=== PATIENT | male | born 1995 | race Asian ===

== ENCOUNTER → 2017-08-25 | Outpatient (CLI) | payer OTHER ==
--- NOTE | 2017-08-25 16:24 | DIAGNOSTIC IMAGING REPORT ---
MRI OF THE LEFT KNEE WITHOUT CONTRAST CLINICAL HISTORY: Left knee pain following injury. Concern for ACL tear. Possible Segond fracture. COMPARISON STUDY: None. TECHNIQUE: Utilizing a 1.5 Nalini magnet and dedicated coil, multiplanar, multiecho imaging of the left knee was performed without intravenous or intraarticular contrast. FINDINGS: Alignment of the left knee is anatomic. The extensor mechanism is intact. There is no joint effusion. There is increased signal within the anterior cruciate ligament with indistinctness of the proximal to mid fibers of the ACL consistent with an ACL tear. The posterior cruciate ligament is intact. The medial collateral ligament and lateral collateral complex are intact. There is a 6 mm T1 and T2 hypointense focus inferior lateral to the lateral tibial plateau which suggests a Segond fracture with associated lateral capsule injury. In addition, there is a nondisplaced nondepressed fracture within the posterior aspect of the lateral tibial plateau. Minimal edema within the lateral femoral condyle suggest an impaction injury. No additional chondral abnormalities are identified. There is minimal edema within the posterior aspect the medial tibial plateau. There is minimal edema within the medial femoral condyle. The lateral meniscus is intact. There is an oblique tear of the posterior horn of the medial meniscus which extends to tibial articular surface. IMPRESSION: 1. Increased signal within the ACL with indistinctness of the proximal to mid fibers of the ACL consistent with an ACL tear. 2. Nondisplaced nondepressed fracture of the posterior aspect of the lateral tibial plateau. Mild marrow edema within the lateral femoral condyle suggests an impaction injury in the setting of an ACL tear. Mild edema within the medial femoral condyle and medial tibial plateau suggest bone contusions. 3. 6 mm bone fragment inferolateral to lateral tibial plateau consistent with a Segond fracture with associated lateral capsular injury. 4. Oblique tear of the posterior horn of the medial meniscus. Electronically signed by: Trevor Steven M.D. 08/25/2017 4:22 PM Dictated Date/Time: 08/25/2017 3:59 PM
== END | disposition home or self-care (01) ==
LOC: C.MRI 15:12
PROVIDERS: ATTEND Family Medicine
DX: S82.145A Nondisplaced bicondylar fracture of left tibia, initial encounter for closed fracture (principal); S83.242A Other tear of medial meniscus, current injury, left knee, initial encounter; X58.XXXA Exposure to other specified factors, initial encounter

== ENCOUNTER → 2017-09-24 | Day surgery (SDC) | payer OTHER ==
[2017-09-10 13:01] VITALS: Ht 182.9 cm; Wt 100.0 kg
[~2017-09-24] VITALS: Ht 182.9 cm; Wt 100.0 kg
[~2017-09-24] MED LIST: ATROPINE SULFATE 0.1 MG/ML 5ML SYR IV PRN; BUPIVACAINE 0.5 % 5 MG/1 ML PF 10ML VIAL ONE; CEFAZOLIN 2000MG IV PUSH 15 ML IV SCH; CEFAZOLIN IV 1,000 MG in DEXTROSE 5% 50ML 50 ML IV SCH; CEFAZOLIN SOD 1 GM VIAL ONE; DEXAMETHASONE SOD INJ 4 MG/ML VIAL ONE; EpHEDrine SULFATE INJ 50 MG/ML AMP IV PRN; EpINEphrine INJ 1MG/ML AMP 1 MG/ML AMP ONE; FENTANYL CITRATE INJ 50 MCG/1 ML 2 ML VIAL ONE; HYDROmorphone INJ 2 MG/ML SYR/VIAL IV PRN; KETOROLAC TROMETHAMINE 30 MG/ML VIAL IV STA; KETOROLAC TROMETHAMINE 30 MG/ML VIAL ONE; LACTATED RINGER'S 1000ML 1,000 ML IV SCH; LIDOCAINE HCL 1% 20 ML VIAL ONE; LIDOCAINE HCL 2% 2 ML VIAL (20MG/ML) ONE; LIDOCAINE/EPINEPHRINE 1% 20 ML VIAL ONE; MIDAZOLAM HCL 1 MG/ML 2ML VIAL ONE; MoRPHine SULFATE 2 MG/ML CARP IV PRN; MoRPHine SULFATE 4 MG/ML 1 ML CARP\\VIAL IV PRN; ONDANSETRON INJ 2 MG/ML 2 ML VIAL IV PRN; ONDANSETRON INJ 2 MG/ML 2 ML VIAL ONE; OXYC-57 PO; OXYCODONE/ACETAMINOPHEN 5-325 TAB PO PRN; PHENYLEPHRINE 100MCG/ML 5ML SYR IV PRN; PROPOFOL IV EMULSION 10 MG/ML 20 ML VIAL IV ONE; ROPIVACAINE 0.5% 5 MG/ML 30 ML VIAL ONE; SODIUM CHLORIDE 0.9% 1000ML 1,000 ML IV SCH
--- NOTE | 2017-09-24 08:28 | History & Physical Bridge Note ---
H&P Re-Evaluation Bridge Note: I have examined the patient, reviewed the History & Physical and in the interval since the performance of the History & Physical I have noted the following changes of clinical significance: No changes noted
--- NOTE | 2017-09-24 12:01 | [facility] Post Operative Brief Note ---
Immediate Operative Summary Operative Date Sep 24, 2017. Pre-Operative Diagnosis Left Knee Anterior Cruciate Ligament Tear Post-Operative Diagnosis Same Procedure(s) Performed Left Knee Arthroscopic Anterior Cruciate Ligament Reconstruction With Patella Tendon Autograft Surgeon Dr. Godoy Creative Services Specialist Surgeon(s) Mattie Grant PA-C Estimated Blood Loss 25 ML Findings Consistent with Post-Op Diagnosis Specimens None Drains None Anesthesia Type General Regional Complication(s) none Disposition Accompanied Pt To Recovery: no Disposition: Recovery Room / PACU
--- NOTE | 2017-09-24 12:25 | Discharge Instructions-SurgCtr ---
Discharge Instructions Date of Service Sep 24, 2017. Visit Reason for Visit: Left Knee Acl Tear Discharge Discharge Diagnosis / Problem: Left knee ACL tear Discharge Goals Goal(s): Decrease discomfort, Improve function, Increase independence Activity Recommendations Activity Limitations: per Instructions/Follow-up section Weightbearing Status: Left non-weightbearing, Right weightbearing (as tolerated ) Anesthesia . Post Anesthesia Instructions: If you have had General Anesthesia or IV Sedation: * Do not drive today. * Resume driving when surgeon permits. * Do not make important decisions or sign legal documents today. * Call surgeon for: 1. Temperature elevations greater than 101 degrees F. 2. Uncontrollable pain. 3. Excessive bleeding. 4. Persistent nausea and vomiting. 5. Medication intolerance (nausea, vomiting or rash). * For nausea and vomiting use only clear liquids such as: tea, soda, bouillon until nausea subsides, then gradually increase diet as tolerated. * If you have any concerns or questions, call your surgeon's office. If physician is unavailable and it is an emergency, call 911 or go to the nearest emergency room. . Instructions / Follow-Up Instructions / Follow-Up The following instructions are a useful guide to questions you may have after your Anterior Cruciate Ligament Reconstruction surgery. If you have any questions contact the office at . ACTIVITY RECOMMENDATIONS: * Heavy manual labor is not permitted until 4-6 months after surgery. * Sports are not permitted until 6-9 months after surgery. * Return to activity is individualized. * DRIVING: Driving is not permitted until 3-4 weeks after surgery at a minimum. Please ask your doctor when it is safe to resume driving. If you have an automatic vehicle and your left leg has been operated on, then you may begin driving as soon as you are comfortable and can drive safely. * BATHING: You may shower or sponge-bathe immediately after surgery. The dressing will need to be covered with a plastic bag or plastic wrap until the dressing is changed on the fourth or fifth day after surgery. Once the dressing has been changed on the fourth or fifth day after surgery, you may shower and get the incision wet. * Wash with regular soap and water. * Do not bathe (submerge the incision), soak, swim or use a hot tub until the incision is completely healed over with normal skin and the doctor has given the OK to proceed. * There is no need to apply any ointments, powders or salves to your incision. * Do not apply alcohol or hydrogen peroxide directly to the incision. Diluted peroxide (50:50 mixture with sterile saline) may be used to clean dried blood from around the incision area. WORK/SCHOOL: * You may return to sedentary work or school when you are feeling comfortable. This is usually 3-7 days after surgery. * Expect increased discomfort with increased activity. Continue to elevate and ice the leg as much as possible. DIET: * Resume previous diet. MEDICATIONS: * You will have a prescription for pain medication and an anti-inflammatory medication after surgery. Use the pain pills for severe pain and the anti-inflammatory for less severe pain. * Once the pain pills have run out, try to use the anti-inflammatory. If this is not effective then contact the office for assistance. * The pain medication may cause nausea, constipation and sleepiness. You should see how they affect you before driving or similar activity. * The anti-inflammatory may cause stomach upset and bleeding. If this occurs, let your doctor know immediately . * Some patients may need blood clot prevention. This can be done with either a pill or a simple shot. Your doctor will advise you on when to begin these medications and how to take them. * Do not take aspirin or other anti-inflammatory products (i.e. Advil or Aleve ) if taking blood thinner medication. * Take a stool softener like Colace or a stimulant like Senokot to prevent constipation. SPECIAL CARE INSTRUCTIONS: The following instructions are a useful guide to questions you may have after your surgery. If you have any questions contact the office at . ICE: * You have the option of an ice cooler, gel packs or ice bags. * If you have an ice cooler, refer to the instructions for that device. * If you do not have an ice cooler, then you will need to use ice bags or gel packs. * Do not apply ice directly to the skin. * Use a thin dressing or stockinet between the skin and ice bag. * Apply ice for 20-30 minutes and repeat every 2-4 hours. This is especially important for the first 7-10 days after surgery. * Once the pain improves, use ice as needed. * The ice cooler can be used continuously. ELEVATION: * Keep your leg elevated at or above the level of your heart as much as possible. * Expect some increased discomfort and swelling if you are standing for any length of time. * When lying down, avoid placing anything under your knee. Rather, prop your leg up by placing several pillows under your heel or calf. DRESSING: * Your dressing will be changed at your first therapy appointment approximately 4-5 days after surgery. * Band-Aids, tape strips or gauze may be applied. You may then change your dressing daily. * Always wash your hands prior to touching the incision area. * Reapply dressing followed by the Lucian wrap or [employer] executive stockinet, ice cooling pad and then the brace. * Once the stitches are removed, you may leave the wound open to air or cover with an Lucian Bandage or [employer] executive stockinet. * If you have been given a white elastic stocking (JAIME hose), wear as much as possible for the first 1-3 weeks depending on swelling. * Expect some bloody drainage for the first few days after surgery. * Leave the tape strips in place for 5-7 days. * Band-Aids and gauze may be changed daily. CRUTCHES: * You will need to use crutches after surgery. * Until your first doctor's appointment, you must use your crutches at all times when walking and should put no more than 50% of your normal weight on the surgical leg. * After your first doctor's appointment, you may gradually progress to full weight bearing and discontinue crutches as tolerated under the guidance of your therapist. * If you have had a microfracture procedure done, you may be advised to be non- weight bearing for up to 6 weeks. BRACE: * After surgery, you will be placed into a range of motion brace locked with your leg straight. This brace is to be worn at all times when walking (even with the crutches) and sleeping until your first doctors appointment. * The brace may be removed for therapy. * After your first therapy appointment, your therapist will open the brace to allow bending of the knee once your muscles are working better. * Until your first doctor's appointment, you should sleep with your brace locked with your knee fully straight. * If you have chosen to use a functional ACL brace then this brace will be supplied about 2-3 months after your surgery. During that time, you will attend therapy 2- 3 times per week. You will also need to do daily exercises for range of motion and strength as instructed. PROBLEMS/QUESTIONS: * If you have any problems such as severe pain, numbness, tingling or high fevers or if you have any questions, please contact the office at [phone]. * It is not uncommon to have some numbness and tingling after the surgery especially if you have had a nerve block done. This should gradually improve over the first 1- 2 days. If this persists longer or worsens then contact the office. FOLLOW UP VISIT: * If not already scheduled, please call the office at to schedule follow-up appointments for approximately 10 days and one month after surgery followed by monthly appointments thereafter. *You have physical therapy appointment September 29, 2017 at 2:30 PM. *You have a follow-up with Dr. Godoy on October 05, 2017 11:45 AM. Diet Recommendations Home Diet: no limitations, resume previous diet Procedures Procedures Performed: Left Knee Arthroscopic Anterior Cruciate Ligament Reconstruction With Patella Tendon Autograft Pending Studies Studies pending at discharge: no Medical Emergencies . Who to Call and When: Medical Emergencies: If at any time you feel your situation is an emergency, please call 911 immediately. . Non-Emergent Contact Non-Emergency issues call your: Surgeon Call Non-Emergent contact if: temperature is above 101, your pain is not controlled, wound has increased drainage, wound has increased redness, wound has increased pain, you have any medication questions . . "Provider Documentation" section prepared by Gloria Grant. . [place] Drug Monitoring Program Search Results: patient reviewed within database, no issues identified
--- NOTE | 2017-09-24 12:27 | [facility] Operative Report ---
Operative Report Operative Date Sep 24, 2017. Pre-Operative Diagnosis Left Knee Anterior Cruciate Ligament Tear Post-Operative Diagnosis Same Procedure(s) Performed Left Knee Arthroscopic Anterior Cruciate Ligament Reconstruction With Patella Tendon Autograft Surgeon Dr. Godoy Wood Heel Fitter Machine Surgeon(s) Mattie Grant PA-C Estimated Blood Loss 25 ML Findings ACL tear left knee Specimens None Drains None Anesthesia Type General Regional Complication(s) none Disposition yes Recovery Room / PACU Indications Patient is a 22-year-old male with acute left ACL tear. Complaint of instability and pain in his left knee. X-rays were taken and found no bony abnormality. MRI was obtained found to have an complete ACL tear of his left knee. Surgical intervention was discussed. He agreed to proceed with surgery. Risks and complications were discussed and informed consent was obtained. Description of Procedure Patient was taken to the operating room and placed under general anesthesia. He was given a peripheral nerve block preoperatively. Timeout was performed. He was given 2 g of IV Ancef for surgical prophylaxis. He was prepped and draped in routine sterile fashion. I was present during the entire case, please see Dr. Godoy's operative report for further detail. Patient was awakened and transferred to recovery room in stable condition. I attest to the content of the Intraoperative Record and any orders documented therein. Any exceptions are noted below.
[2017-09-24 13:08] VITALS: TEMP 36.9
--- NOTE | 2017-09-24 13:31 | Anesthesia Progress Nt - [facility] ---
Anesthesia Post Op Note Date & Time Sep 24, 2017 at 13:30 Vital Signs Pain Intensity: 4 Vital Signs Past 12 Hours Date Time Temp Pulse Resp B/P (MAP) Pulse Ox O2 Delivery O2 Flow Rate FiO2 09/24/17 13:08 36.9 106 18 154/95 (114) 95 Room Air 09/24/17 13:05 142/93 09/24/17 13:02 36.8 96 Room Air 09/24/17 13:02 92 16 09/24/17 13:02 92 16 95 09/24/17 13:01 98 19 95 09/24/17 13:01 98 19 09/24/17 13:00 147/94 09/24/17 12:56 95 19 09/24/17 12:56 95 19 95 09/24/17 12:55 148/99 09/24/17 12:51 105 18 96 09/24/17 12:51 105 18 09/24/17 12:50 161/98 09/24/17 12:47 99 16 100 09/24/17 12:47 98 16 09/24/17 12:45 152/86 09/24/17 12:42 96 17 100 09/24/17 12:42 96 17 09/24/17 12:40 148/91 09/24/17 12:37 98 15 09/24/17 12:37 97 15 100 09/24/17 12:35 149/87 09/24/17 12:32 98 18 09/24/17 12:32 97 18 100 09/24/17 12:30 154/94 09/24/17 12:27 96 20 09/24/17 12:27 96 20 100 09/24/17 12:25 143/93 09/24/17 12:22 99 19 09/24/17 12:22 98 19 100 09/24/17 12:21 153/89 09/24/17 12:21 36.4 95 12 153/89 100 Mask 6 09/24/17 09:17 76 09/24/17 09:17 74 17 100 09/24/17 09:16 159/86 09/24/17 09:14 79 09/24/17 09:14 76 18 100 09/24/17 09:10 156/86 09/24/17 09:09 73 09/24/17 09:09 71 16 99 09/24/17 09:06 145/92 09/24/17 09:04 74 09/24/17 09:04 74 18 155/94 100 09/24/17 09:01 Oxymask 4 09/24/17 08:59 69 09/24/17 08:59 72 18 100 Oxymask 10 09/24/17 08:59 68 14 100 09/24/17 08:54 72 09/24/17 08:54 70 21 100 09/24/17 08:49 81 97 09/24/17 08:49 79 09/24/17 08:44 78 97 09/24/17 08:44 77 09/24/17 08:39 80 98 09/24/17 08:39 81 09/24/17 08:05 36.4 82 18 141/87 (105) 98 Room Air Notes Mental Status: alert / awake / arousable, participated in evaluation Pt Amnestic to Procedure: Yes Nausea / Vomiting: adequately controlled Pain: adequately controlled Airway Patency, RR, SpO2: stable & adequate BP & HR: stable & adequate Hydration State: stable & adequate Anesthetic Complications: no major complications apparent
--- NOTE | 2017-09-24 14:16 | [facility] Operative Report ---
Operative Report Operative Date Sep 24, 2017. Pre-Operative Diagnosis Left Knee Anterior Cruciate Ligament Tear Post-Operative Diagnosis Same Procedure(s) Performed Left Knee Arthroscopic Anterior Cruciate Ligament Reconstruction With Patella Tendon Autograft Surgeon Dr. 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 He has injured his left knee having findings of on clinical exam and MRI consistent with a complete tear of the ACL. Description of Procedure Informed consent obtained. Patient identified as Jeane Niño. He identified the operative site as the left knee. I marked with my initials. A preop surgical timeout was performed. A preop dose of IV antibiotics was given. He was positioned supine on the OR table. A lateral post was used for stressing the knee a tourniquet was applied to the left thigh. The leg was prepped and draped in usual sterile fashion. 1% lidocaine with epinephrine was injected in the knee joint fat pad and portal sites preoperatively. Examination under anesthesia revealed range of motion 2/0/140 equal bilaterally he had a 1+ Juliana with a soft endpoint on the left and a grade 1 pivot shift the knee was otherwise stable and equal to the opposite side there is no effusion. DVT prophylaxis with early mobility. The procedure began by establishing inferolateral viewing portal superior lateral outflow portal and inferomedial working portal. Diagnostic arthroscopy was performed. The articular surfaces of the patella and trochlea were normal the suprapatellar pouch was normal. The patient had a very large retropatellar fat pad and a very prominent medial plica. This in fact almost resemble resembled a meniscus in terms of it being whitish thick tissue that required the use of an arthroscopic biter to release. This was thoroughly debrided. The posterior medial lateral compartments were normal. The articular surfaces of the femur and tibia were normal. Both menisci were intact and stable to probing. There were no loose bodies. Popliteal hiatus was normal. There was some generalized very mild synovitis consistent with prior hemarthrosis. The ACL looks normal upon visual inspection. There was a small nodule consistent with a tear located jumana-laterally. On probing of the ACL it was noted that it was lax and its attachment to the femur was completely deficient. It was scarred into place and could essentially be pulled away with the probe and this interface was easily debrided with the shaver. The ACL was then resected. The limb was exsanguinated with the Esmarch tourniquet inflated 275 mmHg. A midline incision about 10 cm in length was made a full-thickness incision was made down to the patellar tendon and the peritenon was elevated exposing the width of the tendon which was about 34 mm. The central 10-12 mm was harvested as a bone patellar tendon bone autograft using a sterile standard fashion. The patellar block was fashioned into a 9 x 23 size and the tibial block a 10 x 28. Overall graft length was approximately 95 mm. The graft was prepared with the markings and drill holes placed on the back table for safe keeping. The lateral wall wall was debrided of soft tissue. The lateral bifurcate ridge was not very prominent. There was some mild stenosis of the notch. The lateral intercondylar ridge was noted. An accessory medial portal was created using outside in technique with a spinal needle. Based upon anatomical landmarks the center of the femoral ACL tunnel was identified about 8-9 mm anterior to the posterior cartilage margin and just a millimeter posterior to the faint prominence of the lateral bifurcate ridge. This corresponded to about the 45% jeremias on the AP condylar width. A jeremias was made with a microfracture pick. Based upon anatomical landmarks the center of the ACL tibial tunnel was marked. Outside the knee I elevated up the soft tissues including the pedis tendons exposing the MCL. The Arthrex ACL guide set to 55 was placed into the knee through the accessory medial portal. A guidepin was drilled into place and adjusted 1 and then drilled to a size 10 dilated with a 10 mm tunnel dilator. The intra-and extra extra-articular entrances were cleaned and beveled with a rasp as appropriate. Plug inserted. The knee was then placed into the hyperflexed figure 4 position. The accessory medial portal was used followed by a spade tip guidewire introduced into the after mentioned spot on the femur. This was drilled and through and through with a depth of 40 mm for the tunnel. A low-profile Arthrex reamer was inserted carefully past the cartilage in a socket of 25 mm in depth was drilled. The bony debris was evacuated and a 10 mm dilator was used to smooth this out. A passing suture was applied and brought out the tibial tunnel. The graft was then passed into a Chacho grade fashion into the knee and secured within the femoral socket. This was done and they a hyperflexed position overnight no wire using the graft underliner. An 8 x 20 rounded interference screw was advanced up fully on the bone block. There was no roof wall or PCL impingement and there was about 2-3 mm correction 3-4 mm of tightening of the graft in full hyperextension. Prior to this I performed a notchplasty removing some anterolateral wall and roof. The knee was then cycled for isometry. The knee was held in 0 of extension distal tension was applied to the graft and then over a nitinol guidewire after using the graft not sure a 8 x 20 fully threaded interference screw was inserted. Inside the knee the graft had excellent tension with no evidence of impingement. I checked Lockman which was negative equal to the opposite side with a firm endpoint. The pivot shift was absent. The graft was probed. The arthroscopic instrument was removed from the knee the sutures were removed from the knee. The portals were closed with 4-0 nylon. The patellar and tibial defects were bone grafted the patellar tendon was closed with #1 Vicryl for the peritenon was closed with running and interrupted 2-0 Vicryl. The skin was then closed in layers with 2-0 Vicryl and a 4-0 Monocryl subcuticular stitch. Tourniquet was let down after approximately 105 minutes of inflation. A soft sterile dressing was applied full-length Lucian wrap Xeroform 4 x 4's ABDs and a hinged knee brace locked in extension. Patient was then awakened from anesthesia without difficulty and taken to recovery room in stable condition there were no specimens or complications. Counts were correct in the case. Blood loss was approximately 25 cc. At the conclusion of the operation there is no unavailable to speak to. Patient will be rehabilitated according to the standard ACL rehabilitation protocol he can weight-bear as tolerated and have range of motion of the knee as tolerated. I attest to the content of the Intraoperative Record and any orders documented therein. Any exceptions are noted below.
[2017-09-24 14:24] VITALS: BP 158/84; PULSE 97; O2SAT 97
== END | disposition home or self-care (01) ==
LOC: X.SURG 07:49
PROVIDERS: ATTEND Physical Medicine & Rehabilitation Sports Medicine
DX: S83.512A Sprain of anterior cruciate ligament of left knee, initial encounter (principal); X58.XXXA Exposure to other specified factors, initial encounter; Y93.23 Activity, snow (alpine) (downhill) skiing, snowboarding, sledding, tobogganing and snow tubing; E66.9 Obesity, unspecified

== ENCOUNTER → 2017-10-05 | Outpatient (CLI) | payer OTHER ==
[~2017-10-05] MED LIST changes: -ATROPINE SULFATE 0.1 MG/ML 5ML SYR IV PRN; -BUPIVACAINE 0.5 % 5 MG/1 ML PF 10ML VIAL ONE; -CEFAZOLIN 2000MG IV PUSH 15 ML IV SCH; -CEFAZOLIN IV 1,000 MG in DEXTROSE 5% 50ML 50 ML IV SCH; -CEFAZOLIN SOD 1 GM VIAL ONE; -DEXAMETHASONE SOD INJ 4 MG/ML VIAL ONE; -EpHEDrine SULFATE INJ 50 MG/ML AMP IV PRN; -EpINEphrine INJ 1MG/ML AMP 1 MG/ML AMP ONE; -FENTANYL CITRATE INJ 50 MCG/1 ML 2 ML VIAL ONE; -HYDROmorphone INJ 2 MG/ML SYR/VIAL IV PRN; -KETOROLAC TROMETHAMINE 30 MG/ML VIAL IV STA; -KETOROLAC TROMETHAMINE 30 MG/ML VIAL ONE; -LACTATED RINGER'S 1000ML 1,000 ML IV SCH; -LIDOCAINE HCL 1% 20 ML VIAL ONE; -LIDOCAINE HCL 2% 2 ML VIAL (20MG/ML) ONE; -LIDOCAINE/EPINEPHRINE 1% 20 ML VIAL ONE; -MIDAZOLAM HCL 1 MG/ML 2ML VIAL ONE; -MoRPHine SULFATE 2 MG/ML CARP IV PRN; -MoRPHine SULFATE 4 MG/ML 1 ML CARP\\VIAL IV PRN; -ONDANSETRON INJ 2 MG/ML 2 ML VIAL IV PRN; -ONDANSETRON INJ 2 MG/ML 2 ML VIAL ONE; -OXYCODONE/ACETAMINOPHEN 5-325 TAB PO PRN; -PHENYLEPHRINE 100MCG/ML 5ML SYR IV PRN; -PROPOFOL IV EMULSION 10 MG/ML 20 ML VIAL IV ONE; -ROPIVACAINE 0.5% 5 MG/ML 30 ML VIAL ONE; -SODIUM CHLORIDE 0.9% 1000ML 1,000 ML IV SCH
== END | disposition home or self-care (01) ==
LOC: C.RDSM 17:11
PROVIDERS: ATTEND Physical Medicine & Rehabilitation Sports Medicine
DX: S83.512A Sprain of anterior cruciate ligament of left knee, initial encounter (principal); X58.XXXA Exposure to other specified factors, initial encounter